=== PATIENT | female | born 1980 | race Caucasian/White ===

== ENCOUNTER 2016-05-29 11:00 | Emergency (ER) | payer OTHER ==
[2016-05-29 10:01] LABS: BASOPHILS 0.1 %; BASOPHILS ABSOLUTE 0.01 10/3/uL (0.0-0.16); EOSINOPHILS 0.1 %; EOSINOPHILS ABSOLUTE 0.01 10/3/uL (0.0-0.53); HEMOGLOBIN 12.2 g/dL (12.0-16.0); IMMATURE GRANULOCYTES 0.2 %; IMMATURE GRANULOCYTES ABSOLUTE 0.02 10/3/uL (0.0-0.11); LYMPHOCYTES 16.2 %; LYMPHOCYTES ABSOLUTE 1.58 10/3/uL (0.67-4.30); MEAN CORPUS HGB CONC 33.9 g/dL (32.0-36.0); MEAN CORPUSCULAR HEMOGLOB 30.3 pg (26.0-34.0); MEAN PLATELET VOLUME 11.1 fL (9.2-13.0); MONOCYTES 4.6 %; MONOCYTES ABSOLUTE 0.45 10/3/uL (0.21-1.20); NEUTROPHILS 78.8 %; NEUTROPHILS ABSOLUTE 7.67 10/3/uL (2.02-8.40); PLATELET COUNT 210 10/3/uL (150-400); RBC DISTRIBUTION WIDTH 14.3 % (12.0-16.0); RED CELL COUNT 4.02 10/6/uL (4.0-5.6); WHITE BLOOD CELLS 9.7 10/3/uL (4.5-10.5)
[2016-05-29 10:02] LABS: MANUAL DIFF NO %; MEAN CORPUSCULAR VOLUME 89.6 fL (80-100)
[2016-05-29 10:12] LABS: ASCORBIC ACID (UR NOT ORDER) NEG (NEG); BILIRUBIN, URINE NEGATIVE (NEG); ER URINALYSIS TAT 0 Hrs 15 Mins; KETONE, URINE NEGATIVE (NEG); LEUKOCYTE ESTERASE(NOT OR SMALL (NEG); NITRITE (URINE) NEG (NEG); WBC (NOT ORDERED) (RFLEX) 1 (0-5)
[2016-05-29 10:19] LABS: A/G RATIO 0.8 (0.7-1.9); ALBUMIN 3.8 G/DL (3.5-5.0); ALKALINE PHOSPHATASE 117 U/L (45-117); BUN (BLOOD UREA NITROGEN) 11 MG/DL (6-23); CALCIUM, SERUM 8.8 MG/DL (8.5-10.4); CHLORIDE, SERUM 106 MMOL/L (96-112); CO2 (CARBON DIOXIDE) 24 MMOL/L (24-34); GFR AFRICAN AMERICAN 83 ML/MIN (>=60); GFR NON AFRICAN AMERICAN 72 ML/MIN (>=60); GLOBULIN 4.9 G/DL (2.5-4.1); GLUCOSE, SERUM 144 MG/DL (60-99); POTASSIUM, SERUM 4.2 MMOL/L (3.5-5.3); SGOT(AST) 19 U/L (5-40); SGPT(ALT) 32 U/L (5-65); SODIUM, SERUM 140 MMOL/L (135-148); TOTAL BILIRUBIN 0.3 MG/DL (0-1.2); TOTAL PROTEIN 8.7 G/DL (6.0-8.5)
[2016-05-31] MEDS ORDERED: NORCO1 TAB PO (15:03)
[2016-05-31] MEDS ORDERED: DIL2TAB PO (15:04)
[2016-05-31] MEDS ORDERED: PR25 PO (15:04)
== END 2016-05-29 12:00 | disposition home or self-care (01) ==
LOC: ER 11:00
PROVIDERS: Emergency Medicine
DX: N13.2 Hydronephrosis with renal and ureteral calculous obstruction (principal); Z87.442 Personal history of urinary calculi; Z88.0 Allergy status to penicillin; Z88.1 Allergy status to other antibiotic agents; Z88.8 Allergy status to other drugs, medicaments and biological substances
CPT/HCPCS: 74176; 80053; 81001; 83690; 84703; 85025; 87086; 96374; 99285; J1170; J2405

== ENCOUNTER 2016-06-04 12:28 | Day surgery (SDC) | payer OTHER ==
--- NOTE | ~2016-06-04 | OP ---
Record Of Operation [facility] [address] [place] [address] NAME: ISIDRO RIDDLE : 76 STATUS : [facility]#: [id number] AGE: 35 ADM/REG DATE : 06/04/16 MR#: [id number] REPORT SERV DATE: 06/04/16 DICTATED BY: CHASE RAI III DATE: 06/04/16 REPORT STATUS : Draft TRANSCRIBED BY: MODL DATE: 06/04/16 DATE OF PROCEDURE: 06/04/2016 SURGEON: Chase Rai M.D. PROCEDURES: Cystoscopy, left retrograde, left ureteroscopy with fragmentation of left ureteral calculus, and insertion of double-J stent. PREOPERATIVE DIAGNOSIS: Left double-J stent. POSTOPERATIVE DIAGNOSIS: Left double-J stent. The urethra was normal. The bladder was unremarkable. Left retrograde showed a normal ureter. There was a filling defect in the proximal ureter. A wire was placed, and I then placed a rigid scope almost into the proximal ureter. This was over a wire. I could not pass the scope around it. There was a narrowing at the pelvic brim. I then tried to place a 9-1/2 sheath which would not go all the way above the vessels. The 9-1/2 sheath would not pass above the vessels and so I passed the ureteroscope through this up into the kidney, found the stone and dusted it with the laser on a 0.2 setting into very small fragments. All of these were easily passable. The remainder of the kidney was examined. No significant fragments remained. A double-J stent was placed with a loop in the renal pelvis and a loop in the bladder. The patient tolerated the procedure well. OB/MODL Chase Rai III, M.D. / [id number] CC: Vivi Stewart III, M.D.
[~2016-06-04 12:28] MED LIST: DIL2TAB PO; NORCO1 TAB PO; PR25 PO
== END 2016-06-04 18:18 | disposition home or self-care (01) ==
LOC: SDC 12:28
PROVIDERS: Urology
PROC: 0T778DZ Dilation of Left Ureter with Intraluminal Device, Via Natural or Artificial Opening Endoscopic (ICD-10-PCS; 2016-06-04)
PROC: 0TF48ZZ Fragmentation in Left Kidney Pelvis, Via Natural or Artificial Opening Endoscopic (ICD-10-PCS; principal; 2016-06-04 14:00)
DX: N20.0 Calculus of kidney (principal); E66.9 Obesity, unspecified; Z68.38 Body mass index [BMI] 38.0-38.9, adult; Z87.891 Personal history of nicotine dependence; Z88.0 Allergy status to penicillin; Z88.8 Allergy status to other drugs, medicaments and biological substances; Z88.1 Allergy status to other antibiotic agents; Z98.890 Other specified postprocedural states; Z79.899 Other long term (current) drug therapy; Z79.891 Long term (current) use of opiate analgesic
CPT/HCPCS: 84703; A9270-GY; C1758; C1769; C1894; C2617; J0330; J2250; J2405; J2710; J3010; Q9967